=== PATIENT | female | born 2000 | race Caucasian/White ===

== ENCOUNTER 2022-08-31 08:18 | Emergency (ER) | payer BC, MEDICAID ==
[~2022-08-31] VITALS: Ht 160 cm; Wt 116.0 kg
[~2022-08-31 08:18] MED LIST: ACHD5005 PO; BIRTH CONTROL; CEPH500C PO; CYCL10TA25 PO; FLUO10CA29 PO
--- NOTE | 2022-08-31 08:38 | ED GU-Female ---
General Chief Complaint: - Reproductive Stated Complaint: VAG BLEEDING/CRAMPS Source: patient Exam Limitations: no limitations History of Present Illness Date Seen by Provider: Aug 31, 2022 Time Seen by Provider: 08:27 Initial Comments 22-year-old female with history of PCOS, endometriosis presents to the emergency department today for heavy menses. She states. Started on Monday which was normal timing for her. Her bleeding has been significant with clots up to golf ball size. She states she is having to use tampons and pads and changing them very frequently, maybe every 30 minutes or so. She has lower abdominal and low back cramping consistent with previous menstrual cramps. She denies fevers or chills. No new sexual partners and she and her are trying to get . She had a test on Monday with her loader technician, Dr. Cruz at [place]. She also had an endometrial biopsy as she had some abnormalities on an ultrasound per her report. No urinary symptoms. No changes in bowel habits. Allergies and Home Medications Allergies Coded Allergies: No Known Drug Allergies (Unverified , 02/10/16) Patient Home Medication List Home Medication List Reviewed: Yes Fluoxetine HCl (Prozac) 10 Mg Capsule, 10 MG PO DAILY, (Reported) Entered as Reported by: ANDREW FULLER on 02/10/161739 [ Control] , (Reported) Entered as Reported by: ANDREW FULLER on 02/10/161739 Review of Systems Review of Systems Constitutional: no symptoms reported EENTM: no symptoms reported Respiratory: no symptoms reported Cardiovascular: no symptoms reported Genitourinary: other (Heavy menstrual bleeding) Musculoskeletal: no symptoms reported Psychiatric/Neurological: No Symptoms Reported Endocrine: No Symptoms Reported Hematologic/Lymphatic: No Symptoms Reported Past Yckzbud-Znozxx-Kzpjlk Hx Patient Social History Tobacco Use?: No Use of E-Cig and/or Vaping dev: No Substance use?: No Alcohol Use?: No Immunizations Up To Date Tetanus Booster (TDap): Less than 5yrs Seasonal Allergies Seasonal Allergies: No Past Medical History Reproductive Disorders: No Anxiety, Depression Family Medical History Reviewed Nursing Family Hx Hypercholesterolemia 19 FATHER Hypertension 19 FATHER No Pertinent Family Hx Physical Exam Vital Signs Vital Signs - First Documented 08/31/22 08:25 Temp 36.3 Pulse 111 Resp 16 B/P (MAP) 134/87 (103) Pulse Ox 96 O2 Delivery Room Air Capillary Refill : Height, Weight, BMI Height: 5'2.00" Weight: 203lbs. 0.0oz. 92.748450zh; 37.1 BMI Method:Stated General Appearance: WD/WN, no apparent distress HEENT: PERRL/EOMI, normal ENT inspection, pharynx normal Neck: non-tender, supple, normal inspection Cardiovascular: no edema, no gallop, no JVD, tachycardia Respiratory: chest non-tender, lungs clear, normal breath sounds, no respir atory distress, no accessory muscle use Gastrointestinal: normal bowel sounds, non tender, soft, no organomegaly, no pulsatile mass Back: normal inspection, no CVA tenderness Extremities: normal range of motion, non-tender, normal inspection, no pedal edema, no calf tenderness Neurologic/Psychiatric: alert, normal mood/affect, oriented x 3 Skin: normal color, warm/dry Lymphatic: no adenopathy Progress/Results/Core Measures Suspected Sepsis SIRS Temperature: Pulse: Respiratory Rate: Laboratory Tests 08/31/22 08:45: White Blood Count 8.1 Blood Pressure / Mean: Laboratory Tests 08/31/22 08:45: Creatinine 0.79, Platelet Count 247 Results/Orders Lab Results Laboratory Tests Test 08/31/22 08:45 Range/Units White Blood Count 8.1 4.3-11.0 10^3/uL Red Blood Count 4.83 3.80-5.11 10^6/uL Hemoglobin 13.7 11.5-16.0 g/dL Hematocrit 40 35-52 % Mean Corpuscular Volume 83 80-99 fL Mean Corpuscular Hemoglobin 28 25-34 pg Mean Corpuscular Hemoglobin Concent 34 32-36 g/dL Red Cell Distribution Width 12.3 10.0-14.5 % Platelet Count 247 130-400 10^3/uL Mean Platelet Volume 11.8 9.0-12.2 fL Immature Granulocyte % (Auto) 0 % Neutrophils (%) (Auto) 69 42-75 % Lymphocytes (%) (Auto) 24 12-44 % Monocytes (%) (Auto) 5 0-12 % Eosinophils (%) (Auto) 1 0-10 % Basophils (%) (Auto) 1 0-10 % Neutrophils # (Auto) 5.6 1.8-7.8 10^3/uL Lymphocytes # (Auto) 1.9 1.0-4.0 10^3/uL Monocytes # (Auto) 0.4 0.0-1.0 10^3/uL Eosinophils # (Auto) 0.1 0.0-0.3 10^3/uL Basophils # (Auto) 0.1 0.0-0.1 10^3/uL Immature Granulocyte # (Auto) 0.0 0.0-0.1 10^3/uL Sodium Level 140 135-145 MMOL/L Potassium Level 4.0 3.6-5.0 MMOL/L Chloride Level 108 H 98-107 MMOL/L Carbon Dioxide Level 23 21-32 MMOL/L Anion Gap 9 5-14 MMOL/L Blood Urea Nitrogen 11 7-18 MG/DL Creatinine 0.79 0.60-1.30 MG/DL Estimat Glomerular Filtration Rate 108 BUN/Creatinine Ratio 14 Glucose Level 88 70-105 MG/DL Calcium Level 9.1 8.5-10.1 MG/DL Serum Test, Qualitative NEGATIVE NEGATIVE My Orders Orders - PERICO WHITTAKER DO Cbc With Automated Diff (08/31/22 08:34) Basic Metabolic Panel (08/31/22 08:34) Hcg,Qualitative Serum (08/31/22 08:34) Ns Iv 1000 Ml (Sodium Chloride 0.9%) (08/31/22 08:45) Vital Signs/I&O 08/31/22 08:25 Temp 36.3 Pulse 111 Resp 16 B/P (MAP) 134/87 (103) Pulse Ox 96 O2 Delivery Room Air Capillary Refill : Departure Communication (Admissions) Patient is initially slightly tachycardic. I think this is at least in part due to anxiousness however I gave her IV fluids and it did improve with time and fluids. No evidence for anemia. She just had a pelvic exam by her shock absorption floor layer and biopsy. I think symptoms are likely related to her recent biopsy and irritation of the endometrium. I do not think repeat pelvic exam would be helpful at this time. She has no other vaginal symptoms no new sexual partners and she and her are trying to get . We will start control due to this. Recommend she follow-up with Dr. Cruz should her symptoms persist. She states understanding. She is discharged home with strict return precautions for dizziness, lightheadedness or if her symptoms change in any way concerning. Impression Primary Impression: Menorrhagia Qualified Codes: N92.0 - Excessive and frequent menstruation with regular cycle Disposition: HOME, SELF-CARE Condition: Stable Departure-Patient Inst. Referrals: NO,LOCAL PHYSICIAN (PCP) Primary Care Physician Patient Instructions: Heavy Periods Add. Discharge Instructions: Please call to schedule follow-up appoint with Dr. Cruz, especially if your symptoms persist. Return to the emergency department immediately for any shortness of breath, dizziness or if your symptoms change in any way otherwise concerning to All discharge instructions reviewed with patient and/or family. Voiced understanding. PERICO WHITTAKER DO Aug 31, 2022 08:38
[2022-08-31] MEDS ORDERED: NS IV 1000 ML 1,000 ML IV SCH (08:45)
[2022-08-31 09:00] LABS: BASOPHILS # (AUTO) 0.1 10^3/uL (0.0-0.1); BASOPHILS % (AUTO) 1 % (0-10); EOSINOPHILS # (AUTO) 0.1 10^3/uL (0.0-0.3); EOSINOPHILS % (AUTO) 1 % (0-10); HEMATOCRIT 40 % (35-52); HEMOGLOBIN 13.7 g/dL (11.5-16.0); LYMPHOCYTES # (AUTO) 1.9 10^3/uL (1.0-4.0); LYMPHOCYTES % (AUTO) 24 % (12-44); MEAN CORPUSCULAR HEMOGLOBIN 28 pg (25-34); MEAN CORPUSCULAR HGB CONC 34 g/dL (32-36); MEAN CORPUSCULAR VOLUME 83 fL (80-99); MEAN PLATELET VOLUME 11.8 fL (9.0-12.2); MONOCYTES # (AUTO) 0.4 10^3/uL (0.0-1.0); MONOCYTES % (AUTO) 5 % (0-12); NEUTROPHILS # (AUTO) 5.6 10^3/uL (1.8-7.8); NEUTROPHILS % (AUTO) 69 % (42-75); PLATELET COUNT 247 10^3/uL (130-400); WHITE BLOOD COUNT 8.1 10^3/uL (4.3-11.0)
[2022-08-31 09:07] LABS: CALCIUM 9.1 MG/DL (8.5-10.1)
[2022-08-31 09:11] LABS: CREATININE SERUM 0.79 MG/DL (0.60-1.30)
[2022-08-31 10:04] VITALS: BP 120/78
== END 2022-08-31 10:04 | disposition home or self-care (01) ==
LOC: EDUNIT# 08:18 → ER 08:24
DX: N92.0 Excessive and frequent menstruation with regular cycle (principal); Z87.42 Personal history of other diseases of the female genital tract; Z32.02 Encounter for pregnancy test, result negative
CPT/HCPCS: 36415; 80048; 84703; 85025